=== PATIENT | male | born 1945 | race Caucasian/White ===

== ENCOUNTER 2020-12-23 12:14 | Observation (INO) | payer OTHER, MEDICARE ==
[2020-12-23 12:33] LABS: Glucose,Whole Blood 68 mg/dL (75-99)
[2020-12-23] MEDS ORDERED: SODIUM CHLORIDE 0.9% 1,000 ML IV STA (12:53)
--- NOTE | 2020-12-23 12:58 | ED ---
General Adult HPI - General Chief complaint: Dizziness Stated complaint: hypoglycemia,Dizziness Time Seen by Provider: 12/23/20 12:15 Source: patient, RN notes reviewed, old records reviewed Mode of arrival: ambulatory Limitations: no limitations - History of Present Illness Initial comments: This is a 75-year-old male with past medical history significant for high cholesterol and tremors. Patient comes in today complaining that he felt very lightheaded in mosque today he states she's been having issues with lightheadedness for the last month but today in mosque. Bad. Patient states after mosque she went to the urgent care where they did a blood sugar on him and it was 50. Patient states before he left the repeated was 74. Patient denies having any issues with his blood sugar in the past. Patient denies any recent fever chills or cough. Patient denies any chest pain difficulty breathing shortness of breath. Patient denies any palpitations. Patient denies abdominal pain patient denies any recent nausea vomiting. Patient denies alcohol use or drug use. Patient denies any headache patient denies any numbness or weakness. - Related Data Allergies Allergy/AdvReac Type Severity Reaction Status Date / Time Merihhx-Ehs-Wtd Reductase Allergy Unknown Verified 12/23/20 12:22 Inhibitor Review of Systems ROS Statement: Those systems with pertinent positive or pertinent negative responses have been documented in the HPI. ROS Other: All systems not noted in ROS Statement are negative. Past Medical History Past Medical History: Hyperlipidemia Additional Past Medical History / Comment(s): tremors History of Any Multi-Drug Resistant Organisms: None Reported Past Surgical History: Appendectomy, Orthopedic Surgery Additional Past Surgical History / Comment(s): B hand, spinal injection Past Psychological History: No Psychological Hx Reported Smoking Status: Never smoker Past Alcohol Use History: None Reported Past Drug Use History: None Reported General Exam - General Exam Comments Initial Comments: GENERAL: Patient is well-developed and well-nourished. Patient is nontoxic and well- hydrated and is in no acute distress. ENT: Neck is soft and supple. No significant lymphadenopathy is noted. Oropharynx is clear. Moist mucous membranes. Neck has full range of motion without eliciting any pain. EYES: The sclera were anicteric and conjunctiva were pink and moist. Extraocular movements were intact and pupils were equal round and reactive to light. Eyelids were unremarkable. PULMONARY: Unlabored respirations. Good breath sounds bilaterally. No audible rales rhonchi or wheezing was noted. CARDIOVASCULAR: There is a regular rate and rhythm without any murmurs gallops or rubs. ABDOMEN: Soft and nontender with normal bowel sounds. SKIN: Skin is clear with no lesions or rashes and otherwise unremarkable. NEUROLOGIC: Patient is alert and oriented x3. Cranial nerves II through XII are grossly intact. Motor and sensory are also intact. Normal speech, volume and content. Symmetrical smile. MUSCULOSKELETAL: Normal extremities with adequate strength and full range of motion. LYMPHATICS: No significant lymphadenopathy is noted PSYCHIATRIC: Normal psychiatric evaluation. Limitations: no limitations Course Vital Signs 12/23/20 12/23/20 12/23/20 12:22 12:52 14:00 Temperature 98 F Pulse Rate 72 61 Respiratory 18 18 Rate Blood Pressure 132/87 139/85 O2 Sat by Pulse 98 98 99 Oximetry Medical Decision Making - Medical Decision Making EKG shows sinus rhythm at 63 bpm OR interval is 210 QRS is 88 QT interval is 428 QTC is 437. Patient's EKG shows no ST segment elevation or depression. Patient was hypoglycemic with 2 other readings in the emergency department. Patient was eating and drinking the emergency department. I spoke with Dr. Marshall she agreed to admit the patient I admitted the patient wrote admitting orders. - Lab Data Result diagrams: 12/23/20 12:59 12/23/20 12:59 Lab Results 12/23/20 12/23/20 12/23/20 Range/Units 12:28 12:59 12:59 WBC 5.5 (3.8-10.6) k/uL RBC 4.90 (4.30-5.90) m/uL Hgb 15.2 (13.0-17.5) gm/dL Hct 44.7 (39.0-53.0) % MCV 91.1 (80.0-100.0) fL MCH 31.0 (25.0-35.0) pg MCHC 34.0 (31.0-37.0) g/dL RDW 12.7 (11.5-15.5) % Plt Count 212 (150-450) k/uL MPV 7.3 Neutrophils % 65 % Lymphocytes % 27 % Monocytes % 5 % Eosinophils % 1 % Basophils % 1 % Neutrophils # 3.6 (1.3-7.7) k/uL Lymphocytes # 1.5 (1.0-4.8) k/uL Monocytes # 0.3 (0-1.0) k/uL Eosinophils # 0.0 (0-0.7) k/uL Basophils # 0.0 (0-0.2) k/uL PT 10.3 (9.0-12.0) sec INR 1.0 (<1.2) APTT 23.5 (22.0-30.0) sec Sodium (137-145) mmol/L Potassium (3.5-5.1) mmol/L Chloride (98-107) mmol/L Carbon Dioxide (22-30) mmol/L Anion Gap mmol/L BUN (9-20) mg/dL Creatinine (0.66-1.25) mg/dL Est GFR (CKD-EPI)AfAm (>60 ml/min/1.73 sqM) Est GFR (CKD-EPI)NonAf (>60 ml/min/1.73 sqM) Glucose (74-99) mg/dL POC Glucose (mg/dL) 68 L (75-99) mg/dL POC Glu Concierge Receptionist ID [facility] Calcium (8.4-10.2) mg/dL Magnesium (1.6-2.3) mg/dL Total Bilirubin (0.2-1.3) mg/dL AST (17-59) U/L ALT (4-49) U/L Alkaline Phosphatase (38-126) U/L Troponin I (0.000-0.034) ng/mL Total Protein (6.3-8.2) g/dL Albumin (3.5-5.0) g/dL Lipase (23-300) U/L Urine Color Urine Appearance (Clear) Urine pH (5.0-8.0) Ur Specific Mingus (1.001-1.035) Urine Protein (Negative) Urine Glucose (UA) (Negative) Urine Ketones (Negative) Urine Blood (Negative) Urine Nitrite (Negative) Urine Bilirubin (Negative) Urine Urobilinogen (<2.0) mg/dL Ur Leukocyte Esterase (Negative) Urine Opiates Screen (NotDetected) Ur Oxycodone Screen (NotDetected) Urine Methadone Screen (NotDetected) Ur Propoxyphene Screen (NotDetected) Ur Barbiturates Screen (NotDetected) U Tricyclic Antidepress (NotDetected) Ur Phencyclidine Scrn (NotDetected) Ur Amphetamines Screen (NotDetected) U Methamphetamines Scrn (NotDetected) U Benzodiazepines Scrn (NotDetected) Urine Cocaine Screen (NotDetected) U Marijuana (THC) Screen (NotDetected) Serum Alcohol mg/dL 12/23/20 12/23/20 12/23/20 Range/Units 12:59 12:59 12:59 WBC (3.8-10.6) k/uL RBC (4.30-5.90) m/uL Hgb (13.0-17.5) gm/dL Hct (39.0-53.0) % MCV (80.0-100.0) fL MCH (25.0-35.0) pg MCHC (31.0-37.0) g/dL RDW (11.5-15.5) % Plt Count (150-450) k/uL MPV Neutrophils % % Lymphocytes % % Monocytes % % Eosinophils % % Basophils % % Neutrophils # (1.3-7.7) k/uL Lymphocytes # (1.0-4.8) k/uL Monocytes # (0-1.0) k/uL Eosinophils # (0-0.7) k/uL Basophils # (0-0.2) k/uL PT (9.0-12.0) sec INR (<1.2) APTT (22.0-30.0) sec Sodium 137 (137-145) mmol/L Potassium 4.6 (3.5-5.1) mmol/L Chloride 103 (98-107) mmol/L Carbon Dioxide 25 (22-30) mmol/L Anion Gap 9 mmol/L BUN 12 (9-20) mg/dL Creatinine 0.83 (0.66-1.25) mg/dL Est GFR (CKD-EPI)AfAm >90 (>60 ml/min/1.73 sqM) Est GFR (CKD-EPI)NonAf 87 (>60 ml/min/1.73 sqM) Glucose 104 H (74-99) mg/dL POC Glucose (mg/dL) (75-99) mg/dL POC Glu Concierge Receptionist ID Calcium 9.4 (8.4-10.2) mg/dL Magnesium 2.0 (1.6-2.3) mg/dL Total Bilirubin 0.2 (0.2-1.3) mg/dL AST 19 (17-59) U/L ALT 15 (4-49) U/L Alkaline Phosphatase 73 (38-126) U/L Troponin I <0.012 (0.000-0.034) ng/mL Total Protein 7.0 (6.3-8.2) g/dL Albumin 4.4 (3.5-5.0) g/dL Lipase 47 (23-300) U/L Urine Color Colorless Urine Appearance Clear (Clear) Urine pH 5.5 (5.0-8.0) Ur Specific Mingus 1.003 (1.001-1.035) Urine Protein Negative (Negative) Urine Glucose (UA) Negative (Negative) Urine Ketones Negative (Negative) Urine Blood Negative (Negative) Urine Nitrite Negative (Negative) Urine Bilirubin Negative (Negative) Urine Urobilinogen <2.0 (<2.0) mg/dL Ur Leukocyte Esterase Negative (Negative) Urine Opiates Screen Not Detected (NotDetected) Ur Oxycodone Screen Not Detected (NotDetected) Urine Methadone Screen Not Detected (NotDetected) Ur Propoxyphene Screen Not Detected (NotDetected) Ur Barbiturates Screen Not Detected (NotDetected) U Tricyclic Antidepress Not Detected (NotDetected) Ur Phencyclidine Scrn Not Detected (NotDetected) Ur Amphetamines Screen Not Detected (NotDetected) U Methamphetamines Scrn Not Detected (NotDetected) U Benzodiazepines Scrn Not Detected (NotDetected) Urine Cocaine Screen Not Detected (NotDetected) U Marijuana (THC) Screen Not Detected (NotDetected) Serum Alcohol <10 mg/dL 12/23/20 Range/Units 14:29 WBC (3.8-10.6) k/uL RBC (4.30-5.90) m/uL Hgb (13.0-17.5) gm/dL Hct (39.0-53.0) % MCV (80.0-100.0) fL MCH (25.0-35.0) pg MCHC (31.0-37.0) g/dL RDW (11.5-15.5) % Plt Count (150-450) k/uL MPV Neutrophils % % Lymphocytes % % Monocytes % % Eosinophils % % Basophils % % Neutrophils # (1.3-7.7) k/uL Lymphocytes # (1.0-4.8) k/uL Monocytes # (0-1.0) k/uL Eosinophils # (0-0.7) k/uL Basophils # (0-0.2) k/uL PT (9.0-12.0) sec INR (<1.2) APTT (22.0-30.0) sec Sodium (137-145) mmol/L Potassium (3.5-5.1) mmol/L Chloride (98-107) mmol/L Carbon Dioxide (22-30) mmol/L Anion Gap mmol/L BUN (9-20) mg/dL Creatinine (0.66-1.25) mg/dL Est GFR (CKD-EPI)AfAm (>60 ml/min/1.73 sqM) Est GFR (CKD-EPI)NonAf (>60 ml/min/1.73 sqM) Glucose (74-99) mg/dL POC Glucose (mg/dL) 66 L (75-99) mg/dL POC Glu Concierge Receptionist ID [facility] Calcium (8.4-10.2) mg/dL Magnesium (1.6-2.3) mg/dL Total Bilirubin (0.2-1.3) mg/dL AST (17-59) U/L ALT (4-49) U/L Alkaline Phosphatase (38-126) U/L Troponin I (0.000-0.034) ng/mL Total Protein (6.3-8.2) g/dL Albumin (3.5-5.0) g/dL Lipase (23-300) U/L Urine Color Urine Appearance (Clear) Urine pH (5.0-8.0) Ur Specific Mingus (1.001-1.035) Urine Protein (Negative) Urine Glucose (UA) (Negative) Urine Ketones (Negative) Urine Blood (Negative) Urine Nitrite (Negative) Urine Bilirubin (Negative) Urine Urobilinogen (<2.0) mg/dL Ur Leukocyte Esterase (Negative) Urine Opiates Screen (NotDetected) Ur Oxycodone Screen (NotDetected) Urine Methadone Screen (NotDetected) Ur Propoxyphene Screen (NotDetected) Ur Barbiturates Screen (NotDetected) U Tricyclic Antidepress (NotDetected) Ur Phencyclidine Scrn (NotDetected) Ur Amphetamines Screen (NotDetected) U Methamphetamines Scrn (NotDetected) U Benzodiazepines Scrn (NotDetected) Urine Cocaine Screen (NotDetected) U Marijuana (THC) Screen (NotDetected) Serum Alcohol mg/dL Disposition Clinical Impression: Hypoglycemia, Lightheaded Disposition: ADMITTED IP TO THIS HOSP Referrals: None,Stated [REFERRING] - 1-2 days Time of Disposition: 15:18
[2020-12-23 13:09] LABS: Basophils % (A) 1 %; Eosinophils % (A) 1 %; HCT 44.7 % (39.0-53.0); HGB 15.2 gm/dL (13.0-17.5); Lymphocytes # (A) 1.5 k/uL (1.0-4.8); Lymphocytes % (A) 27 %; MCV 91.1 fL (80.0-100.0); Mean Platelet Volume 7.3; Monocytes # (A) 0.3 k/uL (0-1.0); Monocytes % (A) 5 %; Neutrophils # (A) 3.6 k/uL (1.3-7.7); Neutrophils % (A) 65 %; Platelet Count 212 k/uL (150-450); RDW 12.7 % (11.5-15.5); WBC 5.5 k/uL (3.8-10.6)
[2020-12-23 13:16] LABS: ALT 15 U/L (4-49); AST 19 U/L (17-59); African American GFR (CKD) >90 (>60 ml/min/1.73 sqM); Albumin 4.4 g/dL (3.5-5.0); Alcohol <10 mg/dL; Alkaline Phosphatase 73 U/L (38-126); Anion Gap 9 mmol/L; Blood Urea Nitrogen 12 mg/dL (9-20); Calcium 9.4 mg/dL (8.4-10.2); Carbon Dioxide 25 mmol/L (22-30); Chloride 103 mmol/L (98-107); Glucose 104 mg/dL (74-99); Lipase 47 U/L (23-300); Non-African American GFR(CKD) 87 (>60 ml/min/1.73 sqM); Potassium 4.6 mmol/L (3.5-5.1); Sodium 137 mmol/L (137-145); Total Bilirubin 0.2 mg/dL (0.2-1.3)
[2020-12-23 13:19] LABS: Partial Thromboplastin Time 23.5 sec (22.0-30.0); Prothrombin Time 10.3 sec (9.0-12.0)
[2020-12-23 13:28] LABS: Appearance,Urine Clear (Clear); Bilirubin,Urine Negative (Negative); Blood,Urine Negative (Negative); Color,Urine Colorless; Glucose,Urine (UA) Negative (Negative); Ketones,Urine Negative (Negative); Leukocyte Esterase,Urine Negative (Negative); Nitrite,Urine Negative (Negative); PH, Urine 5.5 (5.0-8.0); Protein,Urine Negative (Negative); Specific Gravity,Urine 1.003 (1.001-1.035); Urobilinogen,Urine <2.0 mg/dL (<2.0)
--- NOTE | 2020-12-23 13:40 | XR ---
EXAMINATION TYPE: XR chest 2V DATE OF EXAM: 12/23/2020 COMPARISON: None HISTORY: 75-year-old male with chest pain TECHNIQUE: PA and lateral views FINDINGS: The cardiomediastinal silhouette, aorta, and pulmonary vasculature are within normal limits. Mild hyp erinflation. Large appearance to the right main pulmonary artery on the lateral view. Otherwise, lung s and pleural spaces are clear. IMPRESSION: Correlate for underlying COPD. Possible pulmonary arterial hypertension. Otherwise, no acute process seen.
[2020-12-23 13:41] LABS: Amphetamine Screen,Urine Not Detected (NotDetected); Barbiturate Screen,Urine Not Detected (NotDetected); Benzodiazepines Screen,Urine Not Detected (NotDetected); Cocaine Screen,Urine Not Detected (NotDetected); Methadone Screen, Urine Not Detected (NotDetected); Opiate Screen,Urine Not Detected (NotDetected); Oxycodone Screen, Urine Not Detected (NotDetected); Phencyclidine Screen,Urine Not Detected (NotDetected); Tricyclic Antidepressant,Urine Not Detected (NotDetected); Urn Cannabinoid Scrn Not Detected (NotDetected)
[2020-12-23 14:30] LABS: Glucose,Whole Blood 66 mg/dL (75-99)
--- NOTE | 2020-12-23 14:47 | CT ---
EXAMINATION TYPE: CT brain wo con DATE OF EXAM: 12/23/2020 COMPARISON: None HISTORY: Dizziness and weakness. CT DLP: 1129.4 mGycm Automated exposure control for dose reduction was used. There is cerebral atrophy. There is no mass effect nor midline shift. There is no sign of intracrania l hemorrhage. Calvarium is intact. IMPRESSION: Mild atrophy. No acute intracranial abnormality.
[2020-12-23 15:48] LABS: Glucose,Whole Blood 119 mg/dL (75-99)
[2020-12-23 17:18] LABS: Glucose,Whole Blood 85 mg/dL (75-99)
[2020-12-23] MEDS ORDERED: NALOXONE 0.4 MG/ML 1 ML VIAL IV PRN (18:21)
[2020-12-23] MEDS ORDERED: ONDANSETRON 4 MG/2 ML VIAL IVP PRN (18:22)
[2020-12-23] MEDS ORDERED: ACETAMINOPHEN TAB 325 MG TAB PO PRN (18:22)
--- NOTE | 2020-12-23 18:29 | P.HPIM ---
History of Present Illness H&P Date: 12/23/20 Chief Complaint: dizziness Patient is a 75-year-old male with tremors and dyslipidemia who presented to the ER with complaints of dizziness. He initially had been at anabaptism and felt off and went to urgent care where his blood sugar was found to be 55. He was encouraged to eat and drink and on arrival here his blood sugar was 68. His blood sugar again went down to 66 after eating. Initial chest x-ray showed possible COPD or pulmonary artery hypertension. CT head showed mild atrophy with no acute intracranial abnormality. In the ER he had been eating and drinking well. He was given 1 L normal saline. Arrangements were made for observation. Patient seen and examined at bedside. at anabaptism was feeling very tires, dizzy, and off balance, did not self resolved. Had cereal and coffee this morning. During episode feels cold no diaphoretic, no change in tremors, no loss of bowel or bladder control, no tongue bitting. No palpitations or chest pain with episodes. Feels very presyncopal. Yesterday took 2 naps. Eating and drinking okay, no weight loss. For the last month intermittent dizziness and off balance, has been happening at random and cannot connect a pattern. Usually sits down until it passes. Recently started once weekly vitamin D, it was 17. No family hx of diabetes. Pertinent positives and negatives as discussed in HPI, a complete review of systems was performed and all other systems are negative. General: non toxic, no distress, appears at stated age Derm: warm, dry Head: atraumatic, normocephalic, symmetric Eyes: EOMI, no lid lag, anicteric sclera, pupils equal round reactive to light ENT: Nose and ears atraumatic, no thrush, no pharyngeal erythema Neck: No thyromegaly, no cervical lymphadenopathy, trachea midline, supple Mouth: no lip lesion, mucus membranes moist Cardiovascular: S1S2 reg, no murmur, positive posterior tibial pulse bilateral, no edema, capillary refill less than 2 seconds Lungs: clear to ascultation bilateral, no ronchi, no rales, no wheeze, no accessory muscle use Abdominal: soft, nontender to palpation, no guarding, no appreciable organomegaly, normal bowel sounds Ext: no gross muscle atrophy, muscle strength muscle strength 5 out of 5 in all 4 extremities, no contractures Neuro: CN II-XI grossly intact, light touch intact all 4 extremities, finger to nose within normal limits, Psych: Alert, oriented, appropriate affect Presyncope Hypoglycemia without diabetes mellitus -Blood sugars every 2 hours [id number] -Check insulin level and C-peptide -If either of these are often would check for sulfonylurea as though patient denies taking these. -Check tele, echo, and orthostatic vital signs. Benign essential tremor -Primidone The patient is placed in observation with an anticipated less than 2 midnight stay for evaluation of Hypoglycemia . Surrogate decision-maker: DVT prophylaxis: SCDs Discussed with: patient Anticipated discharge date: in am Anticipated discharge place: home A total of 65 minutes was spent on the care of this complex patient more than 50% of the time was spent in counseling and care coordination. Past Medical History Past Medical History: Hyperlipidemia Additional Past Medical History / Comment(s): tremors History of Any Multi-Drug Resistant Organisms: None Reported Past Surgical History: Appendectomy, Orthopedic Surgery Additional Past Surgical History / Comment(s): B hand, epidural injection Past Psychological History: No Psychological Hx Reported Smoking Status: Never smoker Past Alcohol Use History: Occasional Past Drug Use History: None Reported Additional History: Uses a cane when back is acting up - Past Family History Father Family Medical History: Myocardial Infarction ([place]) Mother Additional Family Medical History / Comment(s): Hole in stomach and body "shut down" Medications and Allergies Home Medications Medication Instructions Recorded Confirmed Type Aspirin EC [Ecotrin Low Dose] 81 mg PO DAILY 12/23/20 12/23/20 History Ergocalciferol [Vitamin D2 (1250 1,250 mcg PO SA 12/23/20 12/23/20 History Mcg = 44495 Iu)] Primidone [Mysoline] 50 mg PO BID 12/23/20 12/23/20 History Allergies Allergy/AdvReac Type Severity Reaction Status Date / Time Lrwydhw-Dnp-Unt Reductase Allergy Unknown Verified 12/23/20 15:55 Inhibitor Physical Exam Osteopathic Statement: *. No significant issues noted on an osteopathic structural exam other than those noted in the History and Physical/Consult. Vitals: Vital Signs Temp Pulse Resp BP Pulse Ox 12/23/20 15:48 71 18 136/81 97 12/23/20 14:00 61 18 139/85 99 12/23/20 12:52 98 12/23/20 12:22 98 F 72 18 132/87 98 Intake and Output 12/23/20 12/23/20 12/23/20 06:59 14:59 22:59 Other: Weight 81.647 kg Results CBC & Chem 7: 12/23/20 12:59 12/23/20 12:59 Labs: Abnormal Lab Results - Last 24 Hours (Table) 12/23/20 12/23/20 12/23/20 Range/Units 12:28 12:59 14:29 Glucose 104 H (74-99) mg/dL POC Glucose (mg/dL) 68 L 66 L (75-99) mg/dL 12/23/20 Range/Units 15:47 Glucose (74-99) mg/dL POC Glucose (mg/dL) 119 H (75-99) mg/dL
[2020-12-23 19:38] LABS: Glucose,Whole Blood 92 mg/dL (75-99)
[2020-12-23 21:33] LABS: Glucose,Whole Blood 110 mg/dL (75-99)
[2020-12-23 23:06] LABS: Glucose,Whole Blood 93 mg/dL (75-99)
[2020-12-24 01:32] LABS: Glucose,Whole Blood 85 mg/dL (75-99)
[2020-12-24 03:00] LABS: Glucose,Whole Blood 99 mg/dL (75-99)
[2020-12-24 05:41] LABS: Glucose,Whole Blood 89 mg/dL (75-99)
[2020-12-24 07:11] LABS: Glucose,Whole Blood 90 mg/dL (75-99)
[2020-12-24 07:38] VITALS: RESP 18
[2020-12-24 09:09] LABS: Glucose,Whole Blood 109 mg/dL (75-99)
[2020-12-24 11:13] LABS: Glucose,Whole Blood 74 mg/dL (75-99)
--- NOTE | 2020-12-24 11:39 | ECHOF ---
Referral Reason:presyncope MEASUREMENTS -------- HEIGHT: 182.9 cm WEIGHT: 81.6 kg BP: 118/73 RVIDd: 2.8 cm (< 3.3) IVSd: 1.1 cm (0.6 - 1.1) LVIDd: 3.8 cm (3.9 - 5.3) LVPWd: 1.5 cm (0.6 - 1.1) IVSs: 1.1 cm LVIDs: 2.9 cm LVPWs: 1.7 cm LA Diam: 3.3 cm (2.7 - 3.8) Ao Diam: 3.3 cm (2.0 - 3.7) AV Cusp: 2.2 cm (1.5 - 2.6) LA Diam: 3.5 cm (2.7 - 3.8) MV EXCURSION: 17.354 mm (> 18.000) MV EF SLOPE: 84 mm/s (70 - 150) EPSS: 0.5 cm MV E Neftaly: 0.47 m/s MV DecT: 228 ms MV A Neftaly: 0.75 m/s MV E/A Ratio: 0.62 RAP: 5.00 mmHg RVSP: 12.60 mmHg FINDINGS -------- Sinus rhythm. This was a technically adequate study. LV size, wall thickness and systolic function are normal, with an EF greater than 55%. The left leeanna tricular size is normal. The right ventricle is normal in size. The left atrial size is normal. The right atrial size is normal. The aortic valve is trileaflet, and appears structurally normal. No aortic stenosis or regurgitation. The mitral valve is normal. Mild mitral regurgitation is present. The tricuspid valve appears structurally normal. Mild tricuspid regurgitation present. Right vent ricular systolic pressure is normal at < 35 mmHg. Trace/mild (physiologic) pulmonic regurgitation. The aortic root size is normal. There is no pericardial effusion. CONCLUSIONS -------- 1. LV size, wall thickness and systolic function are normal, with an EF greater than 55%. 2. The left atrial size is normal. 3. The aortic valve is trileaflet, and appears structurally normal. No aortic stenosis or regurgitati on. 4. Mild mitral regurgitation is present. 5. Mild tricuspid regurgitation present. 6. Trace/mild (physiologic) pulmonic regurgitation. 7. There is no pericardial effusion. BENCH WORKER APPRENTICE: Alivia Tanner RDCS
[2020-12-24 13:29] LABS: Glucose,Whole Blood 88 mg/dL (75-99)
[2020-12-24 15:06] LABS: Glucose,Whole Blood 85 mg/dL (75-99)
[2020-12-24 15:11] VITALS: BP 124/78; PULSE 71; TEMP 97.5
--- NOTE | 2020-12-24 15:11 | P.DS ---
Providers Date of admission: 12/23/20 15:19 Expected date of discharge: 12/24/20 Attending physician: Maru Marshall DO Primary care physician: Physician Nonsta Hospital Course: This is a 75-year-old male with no significant past medical history that presented to the emergency room with episode of dizziness. He was brought in to the emergency room by EMS and his blood glucose was found to be 55 on presentation. Patient was treated and placed on observation. He does not take insulin at home. He does not have history of diabetes. He reported good appetite. Patient was monitored for 24 hours on a nonfasting state and his blo od glucose was ranging anywhere between 70-100. There was one or 2 readings of 66. No blood glucose documented less than 60. His case was discussed with warehouse production worker Dr. Asher over the phone and he would see the patient tomorrow morning in the office for further evaluation. Patient and his were reassured. Patient was advised to eat small and frequent meals. His was advised to get glucose tablets to be used as needed in case of confusion. He was also offered a free glucometer to check his blood glucose at home. He was advised to return to the emergency room if his blood glucose dropped below 55. He will otherwise follow up with endocrinology in the office. Plan - Discharge Summary New Discharge Prescriptions: Continue Primidone [Mysoline] 50 mg PO BID Ergocalciferol [Vitamin D2 (1250 Mcg = 25121 Iu)] 1,250 mcg PO SA Aspirin EC [Ecotrin Low Dose] 81 mg PO DAILY Discharge Medication List Aspirin EC [Ecotrin Low Dose] 81 mg PO DAILY 12/23/20 [History] Ergocalciferol [Vitamin D2 (1250 Mcg = 83655 Iu)] 1,250 mcg PO SA 12/23/20 [History] Primidone [Mysoline] 50 mg PO BID 12/23/20 [History] Follow up Appointment(s)/Referral(s): None,Stated [REFERRING] - 1-2 days Alvina Asher MD [STAFF PHYSICIAN] - 12/25/20 9:30 am (Please arrive 15 minutes early to fill out new patient paperwork) Discharge Disposition: HOME SELF-CARE
== END 2020-12-24 15:40 | disposition home or self-care (01) ==
LOC: EC 12:14 → 6NMEDSUR 15:19
PROVIDERS: ADMIT Internal Medicine; ATTEND Internal Medicine
DX: E16.2 Hypoglycemia, unspecified (principal); G25.0 Essential tremor; E78.5 Hyperlipidemia, unspecified; E78.00 Pure hypercholesterolemia, unspecified; G31.9 Degenerative disease of nervous system, unspecified; Z79.82 Long term (current) use of aspirin; Z79.899 Other long term (current) drug therapy; Z90.49 Acquired absence of other specified parts of digestive tract; Z88.8 Allergy status to other drugs, medicaments and biological substances; Z98.890 Other specified postprocedural states; Z82.49 Family history of ischemic heart disease and other diseases of the circulatory system
CPT/HCPCS: 96360; 96361; 99285; 36415; 93005; 93306; 80053; 83690; 83735; 84484; 85025; 85610; 85730; 81003; 83525; 84681; 80306; 80320; 87635; 71046; 70450; G0378 ×2

== ENCOUNTER → 2020-12-25 | Outpatient (CLI) | payer MEDICARE ==
[2020-12-25 19:29] LABS: Prolactin 6.9 ng/mL (2.1-17.7)
[2020-12-25 19:30] LABS: T4, Free (Free Thyroxine) 1.4 ng/dL (0.80-1.80)
[2020-12-25 20:14] LABS: Thyroid Peroxidase Antibodies <28.0 U/mL (0.0-60.0)
[2020-12-25 20:15] LABS: African American GFR (CKD) 97.9 (60.0-200.0); Albumin 4.5 g/dL (3.80-4.90); Albumin/Globulin Ratio 1.73 (1.60-3.17); Anion Gap 10.2 mmol/L (4.00-12.00); BUN/Creat Ratio 17.78 Ratio (12.00-20.00); Calcium 9.5 mg/dL (8.7-10.3); Carbon Dioxide 22.8 mmol/L (21.6-31.8); Globulin 2.6 g/dL (1.6-3.3); Non-African American GFR(CKD) 84.4 (60.0-200.0); Potassium 4.7 mmol/L (3.5-5.5); Total Bilirubin 0.3 mg/dL (0.2-1.2); Total Protein 7.1 g/dL (6.2-8.2)
== END | disposition home or self-care (01) ==
LOC: LABWHC1 10:43
PROVIDERS: ATTEND Internal Medicine Endocrinology, Diabetes & Metabolism
DX: E16.2 Hypoglycemia, unspecified (principal)
CPT/HCPCS: 36415; 80053; 82024; 82533; 84146; 84439; 84443; 84480; 86376

== ENCOUNTER → 2022-06-10 | Outpatient (CLI) | payer OTHER ==
[~2022-06-10] MED LIST: IODINE/POTASS IOD (LUGOLS) BOTTLE ONE
--- NOTE | 2022-06-11 09:33 | NM ---
EXAMINATION TYPE: NM DatScan Brain SPECT DATE OF EXAM: 06/10/2022 COMPARISON: Correlation CT 12/23/2020 HISTORY: 77-year-old male G25.0, tremor TECHNIQUE: 10 drops of Lugol's solution was administered 1 hour prior to injection as a thyroid bloc tejinder agent. After the administration of 4.87 mCi I-123 Ioflupane DaTscan. Images obtained 3 hours p ost injection. SPECT images of the brain were acquired with axial and coronal reconstructions. FINDINGS: No increase in background activity. Normal symmetric uptake within the corpora striatum. IMPRESSION: This normal appearance is against a diagnosis of idiopathic Parkinson's disease or a Parkinsonian syn drome. It is seen in healthy individuals and also patients with essential tremor, drug-induced andrew sonism, and vascular pseudoparkinsonism.
== END | disposition home or self-care (01) ==
LOC: RADNMMAIN 09:37
PROVIDERS: ATTEND Psychiatry & Neurology Neurology
DX: G21.19 Other drug induced secondary parkinsonism (principal); G25.0 Essential tremor
CPT/HCPCS: 78803; A9584

== ENCOUNTER 2023-05-04 19:17 | Observation (INO) | payer OTHER, MEDICARE ==
[2023-05-04] MEDS ORDERED: ASPIRIN 81 MG PO STA (19:59)
--- NOTE | 2023-05-04 20:03 | ED ---
Chest Pain HPI - General Chief Complaint: Chest Pain Stated Complaint: Chest Pain,Sob Time Seen by Provider: 05/04/23 19:44 Source: patient Mode of arrival: ambulatory Limitations: no limitations - History of Present Illness Initial Comments: This patient is a 78-year-old man who presents of evaluation of left-sided chest pain. Patient states that this started approximately an hour and half before he got here while he was driving. He states that it felt like a shock in his left chest. Sometimes with movement feel like to shock would come back. The symptoms lasted about 30 minutes and then tapered off. He did not have any associated symptoms. MD Complaint: chest pain Onset/Timin -: minutes(s) Onset: other (While driving) Pain Location: left chest Pain Radiation: none Severity: severe Quality: other (Like a shock) Consistency: now resolved Improves With: nothing Worsens With: movement Treatments Prior to Arrival: none - Related Data Home Medications Medication Instructions Recorded Confirmed Aspirin EC [Ecotrin Low Dose] 81 mg PO DAILY 12/23/20 05/04/23 Baclofen [Lyvispah] 5 mg PO TID PRN 05/04/23 05/04/23 Cholecalciferol [Vitamin D3 (25 25 mcg PO DAILY 05/04/23 05/04/23 Mcg = 1000 Iu)] DULoxetine HCL [Cymbalta] 40 mg PO DAILY 05/04/23 05/04/23 Ezetimibe [Zetia] 10 mg PO HS 05/04/23 05/04/23 Previous Rx's Medication Instructions Recorded Bempedoic Acid [Nexletol] 180 mg PO DAILY #90 tab 05/05/23 Allergies Allergy/AdvReac Type Severity Reaction Status Date / Time pravastatin Allergy Rash/Hives Verified 05/04/23 22:22 Review of Systems ROS Statement: Those systems with pertinent positive or pertinent negative responses have been documented in the HPI. ROS Other: All systems not noted in ROS Statement are negative. Constitutional: Denies: fever, chills, weakness Respiratory: Denies: cough, dyspnea, wheezes Cardiovascular: Reports: chest pain. Denies: palpitations, edema, syncope Gastrointestinal: Denies: abdominal pain, nausea, vomiting, diarrhea Genitourinary: Denies: dysuria, hematuria Musculoskeletal: Denies: back pain Skin: Denies: rash Neurological: Denies: headache, weakness, numbness EKG Findings - EKG Results: EKG: interpreted by ERMD, sinus rhythm (Rate 81 bpm), normal axis, normal ST/T - Blocks, [place], Hypertrophy, ST Abn: AV and intraventricular conduction: 1 AV block - HI, Pacemaker, Normal: Myocardial infarction: inferior HI (old age indeterminate) (Possible old inferior HI based on Q waves in leads 3 and aVF) Past Medical History Past Medical History: Hyperlipidemia Additional Past Medical History / Comment(s): tremors History of Any Multi-Drug Resistant Organisms: None Reported Past Surgical History: Appendectomy, Orthopedic Surgery Additional Past Surgical History / Comment(s): B hand, epidural injection Additional Past Anesthesia/Blood Transfusion Reaction / Comment(s): comes out of anesthesia slowly Past Psychological History: No Psychological Hx Reported Smoking Status: Never smoker Past Alcohol Use History: Occasional Past Drug Use History: None Reported - Past Family History Father Family Medical History: Myocardial Infarction ([place]) Mother Additional Family Medical History / Comment(s): Hole in stomach and body "shut down" General Exam Limitations: no limitations General appearance: alert, in no apparent distress Head exam: Present: atraumatic, normocephalic Eye exam: Present: normal appearance. Absent: scleral icterus, conjunctival injection Neck exam: Present: normal inspection Respiratory exam: Present: normal lung sounds bilaterally. Absent: respiratory distress, wheezes, rales, rhonchi, stridor, chest wall tenderness, accessory muscle use Cardiovascular Exam: Present: regular rate, normal rhythm, normal heart sounds. Absent: systolic murmur, diastolic murmur, rubs, gallop GI/Abdominal exam: Present: soft. Absent: distended, tenderness, guarding, rebound, rigid, mass Extremities exam: Present: normal inspection, normal capillary refill. Absent: pedal edema, calf tenderness Back exam: Present: normal inspection. Absent: CVA tenderness (R), CVA tenderness (L) Neurological exam: Present: alert Skin exam: Present: warm, dry, intact, normal color. Absent: rash Course Vital Signs 05/04/23 05/04/23 05/04/23 19:24 20:17 22:05 Temperature 97.9 F Pulse Rate 87 71 67 Respiratory 18 18 18 Rate Blood Pressure 135/73 136/86 128/91 O2 Sat by Pulse 95 97 95 Oximetry 05/05/23 05/05/23 00:00 06:23 Temperature Pulse Rate 62 73 Respiratory 18 18 Rate Blood Pressure 125/83 110/65 O2 Sat by Pulse 97 98 Oximetry Chest Pain MDM - MDM The patient had chest x-ray which I interpreted as being negative for acute infiltrate, pneumothorax, congestive heart failure. Was pt. sent in by a medical professional or institution (, CYDNEY, DRIER TAKE OFF TENDER, urgent care, hospital, or halfway...) When possible be specific @ -[No] Did you speak to anyone other than the patient for history (EMS, parent, family, police, friend...)? What history was obtained from this source @ -[No] Did you review nursing and triage notes (agree or disagree)? Why? @ -[I reviewed and agree with nursing and triage notes] Were old charts reviewed (outside hosp., previous admission, EMS record, old EKG, old radiological studies, urgent care reports/EKG's, halfway records)? Report findings @ -[No old charts were reviewed] Differential Diagnosis (chest pain, altered mental status, abdominal pain women, abdominal pain men, vaginal bleeding, weakness, fever, dyspnea, syncope, headache, dizziness, GI bleed, back pain, seizure, CVA, palpatations, mental health, musculoskeletal)? @ -[Differential Chest Pain: Stable Angina, Unstable Angina, STEMI, NSTEMI Aortic Dissection, Pneumothorax, Musculoskeletal, Esophageal Spasm GERD, Cholecystitis, Pancreatitis, Zoster, this is not meant to be an all-inclusive list. EKG interpreted by me (3pts min.). @ -[I interpreted As above] X-rays interpreted by me (1pt min.). @ -[I interpreted as above CT interpreted by me (1pt min.). @ -[None done] U/S interpreted by me (1pt. min.). @ -[None done] What testing was considered but not performed or refused? (CT, X-rays, U/S, labs)? Why? @ -[None] What meds were considered but not given or refused? Why? @ -[None] Did you discuss the management of the patient with other professionals (pr ofessionals i.e. , CYDNEY, DRIER TAKE OFF TENDER, lab, RT, psych nurse, web content & social media manager, heel sprayer, teacher, juvenile probation officer, case management coordinator)? Give summary @ -Case discussed with admitting physician and there treatment recommendations incorporated Was smoking cessation discussed for >3mins.? @ -[No] Was critical care preformed (if so, how long)? @ -[No] Were there social determinants of health that impacted care today? How? (Homelessness, low income, unemployed, alcoholism, drug addiction, transportation, low edu. Level, literacy, decrease access to med. care, half-way, rehab)? @ -[No] Was there de-escalation of care discussed even if they declined (Discuss DNR or withdrawal of care, Hospice)? DNR status @ -[No] What co-morbidities impacted this encounter? (DM, HTN, Smoking, COPD, CAD, Cancer, CVA, ARF, Chemo, Hep., AIDS, mental health diagnosis, sleep apnea, morbid obesity)? @ -[None] Was patient admitted / discharged? Hospital course, mention meds given and route, prescriptions, significant lab abnormalities, going to OR and other pertinent info. @ -[Patient is 78-year-old man with chest pain who will be admitted to have serial cardiac enzymes, telemetry monitoring, cardiology consultation Undiagnosed new problem with uncertain prognosis? @ -[No] Drug Therapy requiring intensive monitoring for toxicity (Heparin, Nitro, Insulin, Cardizem)? @ -[No] Were any procedures done? @ -[No] Diagnosis/symptom? @ -[Acute chest pain Acute, or Chronic, or Acute on Chronic? @ -[Acute Uncomplicated (without systemic symptoms) or Complicated (systemic symptoms)? @ -[Uncomplicated Side effects of treatment? @ -[No] Exacerbation, Progression, or Severe Exacerbation? @ -[No] Poses a threat to life or bodily function? How? (Chest pain, [place], HI, pneumonia, PE, COPD, DKA, ARF, appy, cholecystitis, CVA, Diverticulitis, Homicidal, Suicidal, threat to staff... and all critical care pts) @ -[Yes, chest pain of cardiac etiology may progress to HI/ Disposition Clinical Impression: Chest pain Disposition: ADMITTED IP TO THIS HOSP Condition: Good Is patient prescribed a controlled substance at d/c from ED?: No
[2023-05-04 20:14] LABS: Basophils # (A) 0.1 k/uL (0-0.2); Basophils % (A) 1 %; Eosinophils # (A) 0.1 k/uL (0-0.7); Eosinophils % (A) 2 %; HCT 50.4 % (39.0-53.0); HGB 16.5 gm/dL (13.0-17.5); Lymphocytes # (A) 2.3 k/uL (1.0-4.8); Lymphocytes % (A) 32 %; MCH 30.1 pg (25.0-35.0); MCHC 32.7 g/dL (31.0-37.0); MCV 92.1 fL (80.0-100.0); Mean Platelet Volume 9.6; Monocytes # (A) 0.5 k/uL (0-1.0); Monocytes % (A) 6 %; Neutrophils # (A) 4.2 k/uL (1.3-7.7); Neutrophils % (A) 57 %; Platelet Count 118 k/uL (150-450); RBC 5.47 m/uL (4.30-5.90); WBC 7.3 k/uL (3.8-10.6)
--- NOTE | 2023-05-04 20:14 | XR ---
EXAMINATION TYPE: XR chest 2V DATE OF EXAM: 05/04/2023 8:10 PM CLINICAL INDICATION:Male, 78 years old with history of Chest Pain; COMPARISON: Chest radiographs from 12/23/2020 TECHNIQUE: XR chest 2V Frontal and lateral views of the chest. FINDINGS: Lungs/Pleura: There is no evidence of pleural effusion, focal consolidation, or pneumothorax. Pulmonary vascularity: Unremarkable. Heart/mediastinum: Cardiomediastinal silhouette is unremarkable. Musculoskeletal: No acute osseous pathology. IMPRESSION: No acute cardiopulmonary disease/process.
[2023-05-04 21:34] LABS: ALT 19 U/L (4-49); AST 19 U/L (17-59); African American GFR (CKD) >90 (>60 ml/min/1.73 sqM); Alkaline Phosphatase 67 U/L (38-126); Amylase 95 U/L (30-110); Anion Gap 9 mmol/L; Blood Urea Nitrogen 23 mg/dL (9-20); Calcium 9.1 mg/dL (8.4-10.2); Carbon Dioxide 24 mmol/L (22-30); Chloride 103 mmol/L (98-107); Glucose 83 mg/dL (74-99); Lipase 74 U/L (23-300); Magnesium 2.1 mg/dL (1.6-2.3); Non-African American GFR(CKD) 84 (>60 ml/min/1.73 sqM); Potassium 4.4 mmol/L (3.5-5.1); Sodium 136 mmol/L (137-145); Total Bilirubin 0.3 mg/dL (0.2-1.3); Total Protein 6.9 g/dL (6.3-8.2)
[2023-05-04 21:40] LABS: INR 0.9 (<1.2); Prothrombin Time 10.2 sec (10.0-12.5)
[2023-05-04] MEDS ORDERED: NITROGLYCERIN SL TABS 0.4 MG TAB SUBLINGUAL PRN (22:42)
[2023-05-04] MEDS ORDERED: BACLOFEN 10 MG TAB PO PRN (22:43)
--- NOTE | 2023-05-05 01:36 | P.HPIM ---
History of Present Illness H&P Date: 05/05/23 Patient is a 78-year-old male with a PMH of hyperlipidemia who presents to the emergency room with complaints of left-sided chest pain. Patient reports the pain started at around 6:30 PM earlier tonight while he was driving. It was left-sided, 6 out of 10, sharp, nonradiating, with associated shortness of breath and lightheadedness, with no clear alleviating or exacerbating features, nonpleuritic, lasting around 20 minutes. Reports to additional similar episodes, one en-route to the hospital and then another one shortly after arrival. Reports that his father of an [place] at 72 years old. Denied smoking history. Reports being symptom free at the time of interview. Denied experiencing lower extremity swelling or pain. Denied history of MIs. In the emergency room, chest x-ray was unremarkable. EKG revealed sinus rhythm with first-degree AV block at 81 bpm with inferior lead Q waves noted (unchanged from EKG from 2020). Laboratory evaluation revealed troponin less than 0.012 wi th d-dimer 0.39, sodium 136, BUN 23 with platelet count 118. ED documentation reviewed and case discussed with ED provider. Review of systems: Pertinent positives and negatives as discussed in HPI, a complete review of systems was performed and all other systems are negative. Physical examination: Vital signs reviewed General: non toxic, no distress, appears at stated age, overweight Derm: no unusual rashes/lesions, warm Head: atraumatic, normocephalic, symmetric Eyes: EOMI, no lid lag, anicteric sclera, pupils equal round reactive to light ENT: Nose and ears atraumatic Neck: No cervical lymphadenopathy, trachea midline, supple Mouth: no lip lesion, mucus membranes moist Cardiovascular: S1S2 reg, no murmur, positive dorsalis pedis pulse bilateral, no edema Lungs: CTA bilateral, no rhonchi, no rales, no accessory muscle use Abdominal: soft, nontender to palpation, no guarding Ext: muscle strength 5 out of 5 in all 4 extremities grossly, no gross muscle atrophy, no contractures, Neuro: CN II-XI grossly intact, no gross focal neuro deficits Psych: Alert, oriented, appropriate affect Assessment: Atypical chest pain, rule out ACS Thrombocytopenia, unclear etiology Chronic conditions: Hyperlipidemia Imaging: In the emergency room, chest x-ray was unremarkable. EKG revealed sinus rhythm with first-degree AV block at 81 bpm with inferior lead Q waves noted (unchanged from EKG from 2020). Data Review: Laboratory evaluation revealed troponin less than 0.012 with d-dimer 0.39, sodium 136, BUN 23 with platelet count 118. Plan: Status post aspirin 324 mg once. Continue with aspirin daily Cardiac monitoring Cardiology consult Echocardiogram Trend troponin DVT prophylaxis: Lovenox Subq The patient is admitted with an anticipated less than 2 midnight stay for evaluation of chest pain CODE STATUS: Full Code Discussed with: Patient Anticipated discharge place: Home Past Medical History Past Medical History: Hyperlipidemia Additional Past Medical History / Comment(s): tremors History of Any Multi-Drug Resistant Organisms: None Reported Past Surgical History: Appendectomy, Orthopedic Surgery Additional Past Surgical History / Comment(s): B hand, epidural injection Additional Past Anesthesia/Blood Transfusion Reaction / Comment(s): comes out of anesthesia slowly Past Psychological History: No Psychological Hx Reported Smoking Status: Never smoker Past Alcohol Use History: Occasional Past Drug Use History: None Reported - Past Family History Father Family Medical History: Myocardial Infarction ([place]) Mother Additional Family Medical History / Comment(s): Hole in stomach and body "shut down" Medications and Allergies Home Medications Medication Instructions Recorded Confirmed Type Aspirin EC [Ecotrin Low Dose] 81 mg PO DAILY 12/23/20 05/04/23 History Baclofen [Lyvispah] 5 mg PO TID PRN 05/04/23 05/04/23 History Cholecalciferol [Vitamin D3 (25 25 mcg PO DAILY 05/04/23 05/04/23 History Mcg = 1000 Iu)] DULoxetine HCL [Cymbalta] 40 mg PO DAILY 05/04/23 05/04/23 History Ezetimibe [Zetia] 10 mg PO HS 05/04/23 05/04/23 History Naproxen [Naprosyn] 500 mg PO BID PRN 05/04/23 05/04/23 History Allergies Allergy/AdvReac Type Severity Reaction Status Date / Time pravastatin Allergy Rash/Hives Verified 05/04/23 22:22 Physical Exam Vitals: Vital Signs Temp Pulse Resp BP Pulse Ox 05/04/23 22:05 67 18 128/91 95 05/04/23 20:17 71 18 136/86 97 05/04/23 19:24 97.9 F 87 18 135/73 95 Intake and Output 05/04/23 05/04/23 05/05/23 14:59 22:59 06:59 Other: Weight 86.183 kg Results CBC & Chem 7: 05/04/23 20:00 05/04/23 20:33 Labs: Abnormal Lab Results - Last 24 Hours (Table) 05/04/23 05/04/23 Range/Units 20:00 20:33 Plt Count 118 L (150-450) k/uL Sodium 136 L (137-145) mmol/L BUN 23 H (9-20) mg/dL
[2023-05-05 08:17] VITALS: BP 136/82; PULSE 71; RESP 16; TEMP 97.7
[2023-05-05] MEDS ORDERED: CHOLECALCIFEROL 25 MCG (1000 IU) TABLET PO SCH (09:00)
[2023-05-05] MEDS ORDERED: ASPIRIN 325 MG TAB PO SCH (09:00)
[2023-05-05] MEDS ORDERED: DULoxetine HCL 20 MG CAPSULE.DR PO SCH (09:00)
[2023-05-05] MEDS ORDERED: ENOXAPARIN 40 MG/0.4 ML SYRINGE SQ SCH (09:00)
[2023-05-05] MEDS ORDERED: ASPIRIN 81 MG PO SCH (09:00)
[2023-05-05 11:08] LABS: Chol/HDL Ratio 4.84 Ratio; LDL Cholesterol,Calculated 181.7 mg/dL (0.0-131.0); VLDL Calculation 16.68 mg/dL (5.00-40.00)
--- NOTE | 2023-05-05 11:20 | P.CRDCN ---
History of Present Illness History of present illness: HISTORY OF PRESENT ILLNESS: This is a 78 year old male with a past medical history significant for hyperlipidemia and former nicotine dependence. Patient does not follow with a sales assistant displays. We have been asked to see the patient in consultation for chest pain. Patient examined at the bedside. Patient presented to the hospital with a chief complaint of chest discomfort. Patient states he has been having chest pain for the past week. He states yesterday the pain was worse and had been prior and lasted longer than normal so he decided to come to the emergency room for further evaluation. He states the pain feels like electrical shocks. He does report having another episode of chest discomfort when he got to the hospital. This morning, he denies chest pain or pressure. He does report taking aspirin at home. He is a former cigarette smoker and quit smoking 35 years ago. He denies any previous history of coronary artery disease. He denies any recent stress testing. * EKG reveals sinus mechanism with no signs of acute ischemia * Chest xray negative for acute process * Current home cardiac medications include Zetia 10 mg at night and 81 mg daily * Most recent echocardiogram obtained in December 2020 revealed ejection fraction 55% with mild MR and mild TR REVIEW OF SYSTEMS: At the time of my exam: CONSTITUTIONAL: Denies fever or chills. HEENT: Denies blurred vision, vision changes, or eye pain. Denies hemoptysis CARDIOVASCULAR: Denies chest pain. Denies orthopnea. Denies PND. Denies palpitations RESPIRATORY: Denies shortness of breath. GASTROINTESTINAL: Denies abdominal pain. Denies nausea or vomiting. HEMATOLOGIC: Denies bleeding disorders. GENITOURINARY: Denies any blood in urine. SKIN: Denies pruitis. Denies rash. PHYSICAL EXAM: VITAL SIGNS: Reviewed. GENERAL: Well-developed in no acute distress. HEENT: Head is normocephalic. Pupils are equal, round. Sclerae anicteric. Mucous membranes of the mouth are moist. Neck supple. No JVD or thyromegaly LUNGS: Respirations even and unlabored. Lungs essentially clear to auscultation bilaterally. HEART: Regular rate and rhythm. S1 and S2 heard. ABDOMEN: Soft. Nondistended. Nontender. EXTREMITIES: Normal range of motion. No clubbing or cyanosis. Peripheral pulses intact. No lower extremity edema NEUROLOGIC: Awake and alert. Oriented x 3. ASSESSMENT: Chest pain, troponins negative 3. Hyperlipidemia, intolerant to statin therapy, on Zetia outpatient Former nicotine dependence PLAN: An acute coronary event has been ruled out Resume home cardiac medications Decrease aspirin to 81 mg daily Check lipid panel Patient to undergo stress echo today to assess for ischemia If stress echocardiogram is negative and 2-D echo does not reveal any significant abnormalities, the patient may be discharged home today from a cardiac standpoint Nurse practitioner note has been reviewed by physician. Signing provider agrees with the documented findings, assessment, and plan of care. Past Medical History Past Medical History: Hyperlipidemia Additional Past Medical History / Comment(s): tremors History of Any Multi-Drug Resistant Organisms: None Reported Past Surgical History: Appendectomy, Orthopedic Surgery Additional Past Surgical History / Comment(s): B hand, epidural injection Additional Past Anesthesia/Blood Transfusion Reaction / Comment(s): comes out of anesthesia slowly Past Psychological History: No Psychological Hx Reported Smoking Status: Never smoker Past Alcohol Use History: Occasional Past Drug Use History: None Reported - Past Family History Father Family Medical History: Myocardial Infarction ([place]) Mother Additional Family Medical History / Comment(s): Hole in stomach and body "shut down" Medications and Allergies Home Medications Medication Instructions Recorded Confirmed Type Aspirin EC [Ecotrin Low Dose] 81 mg PO DAILY 12/23/20 05/04/23 History Baclofen [Lyvispah] 5 mg PO TID PRN 05/04/23 05/04/23 History Cholecalciferol [Vitamin D3 (25 25 mcg PO DAILY 05/04/23 05/04/23 History Mcg = 1000 Iu)] DULoxetine HCL [Cymbalta] 40 mg PO DAILY 05/04/23 05/04/23 History Ezetimibe [Zetia] 10 mg PO HS 05/04/23 05/04/23 History Naproxen [Naprosyn] 500 mg PO BID PRN 05/04/23 05/04/23 History Allergies Allergy/AdvReac Type Severity Reaction Status Date / Time pravastatin Allergy Rash/Hives Verified 05/04/23 22:22 Physical Exam Vitals: Vital Signs Temp Pulse Resp BP Pulse Ox 05/05/23 06:23 73 18 110/65 98 05/05/23 00:00 62 18 125/83 97 05/04/23 22:05 67 18 128/91 95 05/04/23 20:17 71 18 136/86 97 05/04/23 19:24 97.9 F 87 18 135/73 95 Intake and Output 05/04/23 05/05/23 05/05/23 22:59 06:59 14:59 Other: Weight 86.183 kg Results 05/04/23 20:00 05/04/23 20:33 Cardiac Enzymes 05/04/23 05/04/23 05/04/23 Range/Units 20:33 20:33 23:08 AST 19 (17-59) U/L Troponin I <0.012 <0.012 (0.000-0.034) ng/mL 05/05/23 Range/Units 03:11 AST (17-59) U/L Troponin I <0.012 (0.000-0.034) ng/mL Coagulation 05/04/23 Range/Units 21:11 PT 10.2 (10.0-12.5) sec APTT 25.0 (22.0-30.0) sec CBC 05/04/23 Range/Units 20:00 WBC 7.3 (3.8-10.6) k/uL RBC 5.47 (4.30-5.90) m/uL Hgb 16.5 (13.0-17.5) gm/dL Hct 50.4 (39.0-53.0) % Plt Count 118 L (150-450) k/uL Comprehensive Metabolic Panel 05/04/23 Range/Units 20:33 Sodium 136 L (137-145) mmol/L Potassium 4.4 (3.5-5.1) mmol/L Chloride 103 (98-107) mmol/L Carbon Dioxide 24 (22-30) mmol/L BUN 23 H (9-20) mg/dL Creatinine 0.88 (0.66-1.25) mg/dL Glucose 83 (74-99) mg/dL Calcium 9.1 (8.4-10.2) mg/dL AST 19 (17-59) U/L ALT 19 (4-49) U/L Alkaline Phosphatase 67 (38-126) U/L Total Protein 6.9 (6.3-8.2) g/dL Albumin 4.0 (3.5-5.0) g/dL Current Medications Generic Name Dose Route Start Last Admin Trade Name Freq PRN Reason Stop Dose Admin Aspirin 325 mg 05/05/23 09:00 Aspirin 325 Mg Tab PO DAILY [facility] Baclofen 5 mg 05/04/23 22:43 Baclofen 10 Mg Tab PO TID PRN Muscle Spasm Cholecalciferol 25 mcg 05/05/23 09:00 Cholecalciferol 25 Mcg (1000 Iu) Tablet PO DAILY [facility] Duloxetine HCl 40 mg 05/05/23 09:00 Duloxetine Hcl 20 Mg Capsule.Dr PO DAILY [facility] Ezetimibe 10 mg 05/05/23 21:00 Ezetimibe 10 Mg Tab PO HS [facility] Enoxaparin Sodium 40 mg 05/05/23 09:00 Enoxaparin 40 Mg/0.4 Ml Syringe SQ DAILY [facility] Nitroglycerin 0.4 mg 05/04/23 22:42 Nitroglycerin Sl Tabs 0.4 Mg Tab SUBLINGUAL Q5M PRN Chest Pain Intake and Output 05/04/23 05/05/23 05/05/23 22:59 06:59 14:59 Other: Weight 86.183 kg 05/04/23 20:00 05/04/23 20:33
--- NOTE | 2023-05-05 13:06 | CA ---
Stress Echo Report Ryan Feliz Age: 78 Gender: M : 1945 Exam Date: 05/05/2023 10:56 Exam Location: [facility] Ht (in): 71 Wt (lb): 190 Ordering Physician: Mary Anne Monteiro Referring Physician: [id number] Rags Laborer: Salome Tapia RDCS Technologist Procedure CPT: Indication: CP ICD-9 Codes: Rhythm: Patient History: CP, SUNNY, CHOL, TOB ( QUIT 40 YRS AGO PREVIOUSLY 1PPD X 30YRS Cardiac Medications: Medications in past 24 hours: Contrast: Stress Results Protocol: Krishna Total dose(mL): Exercise Duration (min:sec): 8:[address] Depression (mm): Angina Score: Katz Score: METS: 8.5 Resting HR: 79 Resting BP: 121 / 68 Peak HR: 125 Peak BP: 157 / 76 Max Predicted HR: 144 87 % Max Predicted HR Target HR: 122 Double Product: [id number] Stress Summary: BP Response: Reason for Termination: Reached target heart rate or work-load Cardiac Symptoms: Test terminated after reaching target heart rate (85% max predicted) ECG Analysis Resting ECG: Sinus rhythm heart rate 79 bpm, normal axis and no blocks Stress ECG: There is no significant ST-T wave changes that are diagnostic for ischemia by ST segment analysis Arrhythmia: There were no sustained arrhythmias ectopic beats Echo Analysis Resting Echo: Normal resting regional wall motion abnormality Peak Echo Analysis: Normal augmentation of systolic function of all myocardial segments. No evidence of regional wall motion abnormality at peak stress MEASUREMENTS (Male/Female) Normal Values CONCLUSIONS Fair exercise tolerance for patient's age achieving 8.5 METS Normal clinical and hemodynamic response to exercise Nonischemic ECG response to exercise Non-ischemic echocardiographic response to exercise Overall normal treadmill stress echo Dr Jelani Braden (Electronically Signed) Final Date: 05 May 2023 13:05
--- NOTE | 2023-05-05 13:27 | P.DS ---
Providers Date of admission: 05/04/23 22:44 Expected date of discharge: 05/05/23 Attending physician: Jeimy Mckeon MD Consults: 05/04/23 22:42 Consult Physician Routine Consulting Provider: Toney Garcia Consult Reason/Comments: chest pain Do you want consulting provider notified?: Yes Primary care physician: Stated None Hospital Course: Discharge Diagnosis: Dyslipidemia Atypical chest pain Mild Thrombocytopenia Depression Hospital Course: 78-year-old male with a PMH of hyperlipidemia who presents to the emergency room with complaints of left-sided chest pain. In the emergency room, chest x-ray was unremarkable. EKG revealed sinus rhythm with first-degree AV block at 81 bpm with inferior lead Q waves noted (unchanged from EKG from 2020). Laboratory evaluation revealed troponin less than 0.012 with d-dimer 0.39, sodium 136, BUN 23 with platelet count 118. Cardiology was consulted. Patient currently chest pain-free. Troponin negative 3. Stress echo did not show any signs of ischemia. Patient being discharged home with follow-up with cardiology and PCP. Patient seen and examined at bedside. Vital signs reviewed and stable. General: nontoxic, no distress, appears at stated age Derm: warm, dry Head: atraumatic, normocephalic, symmetric Eyes: EOMI, no lid lag, anicteric sclera Mouth: no lip lesion, mucus membranes moist Cardiovascular: S1S2 reg, no murmur Lungs: CTA bilateral, no rhonchi, no rales , no accessory muscle use Abdominal: soft, nontender to palpation, no guarding, no appreciable organomegaly Ext: no gross muscle atrophy, no edema, no contractures Neuro: CN II-XI grossly intact, no focal neuro deficits Psych: Alert, oriented, appropriate affect A total of 36 minutes of time were spent preparing this complex discharge summary. Patient was discharged on 05/05/23 at 13:24. Patient Condition at Discharge: Good Plan - Discharge Summary Discharge Rx Participant: No New Discharge Prescriptions: New Bempedoic Acid [Nexletol] 180 mg PO DAILY #90 tab Continue Ezetimibe [Zetia] 10 mg PO HS Cholecalciferol [Vitamin D3 (25 Mcg = 1000 Iu)] 25 mcg PO DAILY Aspirin EC [Ecotrin Low Dose] 81 mg PO DAILY DULoxetine HCL [Cymbalta] 40 mg PO DAILY Baclofen [Lyvispah] 5 mg PO TID PRN PRN Reason: Muscle Spasm Discontinued Naproxen [Naprosyn] 500 mg PO BID PRN PRN Reason: Pain Discharge Medication List Aspirin EC [Ecotrin Low Dose] 81 mg PO DAILY 12/23/20 [History] Baclofen [Lyvispah] 5 mg PO TID PRN 05/04/23 [History] Cholecalciferol [Vitamin D3 (25 Mcg = 1000 Iu)] 25 mcg PO DAILY 05/04/23 [History] DULoxetine HCL [Cymbalta] 40 mg PO DAILY 05/04/23 [History] Ezetimibe [Zetia] 10 mg PO HS 05/04/23 [History] Bempedoic Acid [Nexletol] 180 mg PO DAILY #90 tab 05/05/23 [Rx] Follow up Appointment(s)/Referral(s): Jelani Braden MD [Medical Doctor] - 1 Week Nonstaff,Physician [REFERRING] - 1-2 days Patient Instructions/Handouts: Chest Pain (ED) Activity/Diet/Wound Care/Special Instructions: Please see your PCP and cardiology. Discharge Disposition: HOME SELF-CARE
[2023-05-05] MEDS ORDERED: EZETIMIBE 10 MG TAB PO SCH (21:00)
--- NOTE | 2023-05-06 09:40 | CA ---
Transthoracic Echo Report Name: Ryan Feliz Age: 78 Gender: M : 1945 Exam Date: 05/05/2023 11:10 Exam Location: [facility] Ht (in): 71 Wt (lb): 190 Ordering Physician: Jeimy Mcekon MD Attending/Referring Phys: [employer] Planner Salome Tapia RDCS Procedure CPT: Indications: Chest Pain Cardiac Hx: Technical Quality: Fair Contrast 1: Total Dose (mL): Contrast 2: Total Dose (mL): MEASUREMENTS (Male / Female) Normal Values 2D ECHO LV Diastolic Diameter PLAX 2.1 cm 4.2 - 5.9 / 3.9 - 5.3 cm LV Systolic Diameter PLAX 1.4 cm IVS Diastolic Thickness 1.2 cm 0.6 - 1.0 / 0.6 - 0.9 cm LVPW Diastolic Thickness 1.4 cm 0.6 - 1.0 / 0.6 - 0.9 cm LV Relative Wall Thickness 1.2 LA Volume 33.2 cm??? 18 - 58 / 22 - 52 cm??? LA Volume Index 15.9 cm???/m??? 16 - 28 cm???/m??? M-MODE Aortic Root Diameter MM 4.0 cm LA Systolic Diameter MM 3.6 cm LA Ao Ratio MM 0.9 AV Cusp Separation MM 1.4 cm DOPPLER AV Peak Velocity 120.8 cm/s AV Peak Gradient 5.8 mmHg AV Mean Velocity 96.8 cm/s AV Mean Gradient 4.0 mmHg AV Velocity Time Integral 21.4 cm LVOT Peak Velocity 106.3 cm/s LVOT Peak Gradient 4.5 mmHg LVOT Velocity Time Integral 20.1 cm MV Area PHT 3.9 cm??? Mitral E Point Velocity 62.6 cm/s Mitral A Point Velocity 110.5 cm/s Mitral E to A Ratio 0.6 MV Deceleration Time 196.1 ms MV E' Velocity 6.4 cm/s Mitral E to MV E' Ratio 9.8 TR Peak Velocity 258.5 cm/s TR Peak Gradient 26.7 mmHg Right Ventricular Systolic Press 31.7 mmHg FINDINGS Left Ventricle Mildly increased left ventricular wall thickness. Left ventricular cavity size normal. Normal left ventricular systolic function with no obvious regional wall motion abnormalities. Left ventricular ejection fraction is estimated at 55-60 %. Right Ventricle Normal right ventricular size and function. Right ventricular systolic pressure within normal limits. Right Atrium Normal right atrial size. Left Atrium Normal left atrial size. Mitral Valve Structurally normal mitral valve. No mitral stenosis, regurgitation or prolapse. Aortic Valve Trileaflet aortic valve. No aortic valve stenosis or regurgitation. Tricuspid Valve Structurally normal tricuspid valve. Mild tricuspid regurgitation. Pulmonic Valve Structurally normal pulmonic valve. Trace pulmonic regurgitation. Pericardium Small physiological pericardial effusion Prominent epicardial fat Aorta Normal size aortic root and proximal ascending aorta. CONCLUSIONS Left ventricular ejection fraction is estimated at 55-60 %. No obvious regional wall motion abnormalities. Small physiological pericardial effusion Prominent epicardial fat No significant valvular disease Previewed by: Dr Jelani Braden (Electronically Signed) Final Date: 06 May 2023 09:40
== END 2023-05-05 14:09 | disposition home or self-care (01) ==
LOC: EC 19:17 → 6NMEDSUR 22:44
PROVIDERS: ADMIT Internal Medicine; ATTEND Internal Medicine
DX: R07.89 Other chest pain (principal); D69.6 Thrombocytopenia, unspecified; F32.A Depression, unspecified; E78.5 Hyperlipidemia, unspecified; Z87.891 Personal history of nicotine dependence; Z79.82 Long term (current) use of aspirin; Z79.899 Other long term (current) drug therapy; Z82.49 Family history of ischemic heart disease and other diseases of the circulatory system
CPT/HCPCS: 96372; 99285; 36415; 93005; 93306; 93351; 85379; 80061; 80053; 82150; 83690; 83735; 84484 ×2; 85025; 85610; 85730; 71046; G0378 ×2; J1650